=== PATIENT | female | born 1985 | race Caucasian/White ===

== ENCOUNTER → 2016-12-15 07:19 | Day surgery (SDC) | payer OTHER ==
--- NOTE | 2016-12-04 10:26 | HP ---
PREOPERATIVE HISTORY AND PHYSICAL EXAM: DATE OF ADMISSION/SURGERY: 12/15/16 DATE OF OFFICE VISIT/ENCOUNTER: 12/02/16 ATTENDING SURGEON: Stacy Shaw MD PROCEDURE: Excision mass right thumb. CHIEF COMPLAINT: Right thumb mass. HISTORY OF PRESENT ILLNESS: This is a 31-year-old female who complains of a lump in her right thumb that has been present for approximately a month. It bothers her when she is driving, typing, and s weeping. It feels better when she rests it. She does not have any associated numbness and denies a ny injury. She has not had any break in her skin. She would like to have the mass removed. 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 2. Depression. 3. Anxiety. 4. Sleep apnea with CPAP. PAST SURGICAL HISTORY: 1. . 2. Dental surgery. CURRENT MEDICATIONS: 1. Centrum 1 tablet daily. 2. Effexor 225 mg daily. 3. Fiber 625 mg 5 tablets daily. 4. Gabapentin 800 mg 3 times a day. 5. Hydroxyzine HCL 50 mg 1 tablet q.6 h. p.r.n. 6. Melatonin ER 3 mg 2 daily. 7. Neurontin 800 mg daily. 8. Venlafaxine HCl 75 mg q.h.s. 9. Venlafaxine HCl ER 150 mg daily. 10. Vitamin B12 1000 mcg daily. 11. control implant in left arm. ALLERGIES: No known drug allergies. FAMILY MEDICAL HISTORY: Diabetes, cancer, and rheumatoid arthritis. SOCIAL HISTORY: The patient is currently unemployed. She denies tobacco use, recreational drug use and alcohol use. REVIEW OF SYSTEMS: General: Negative for fevers, chills or night sweats. No known anesthesia prob lems. HEENT: Negative for headache, lightheadedness or syncopal episodes. Integumentary: Negativ e for abrasions, lesions or open wounds. Cardiothoracic: Negative for chest pain, palpitations, or edema. Negative for hypertension. 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 GI: Negative for nausea, vomiting, diarrhea, constipation, or GERD. : Negative for nocturia, urinary frequency, urgency, history of UTIs or kidney problems. Musculoskeletal: Po sitive for current complaints. Negative for chronic or intermittent back pain. No history of fract ures. Neurological: Negative for paresthesias, numbness, history of seizure, stroke or epilepsy. Endocrine: Negative for diabetes or thyroid issues. Hematologic: Negative for easy bruising, anemi a, excessive bleeding, or history of DVT. Infectious Disease: Negative for history of MRSA, hepati tis C or HIV. PHYSICAL EXAMINATION GENERAL: Well-developed, well-nourished 31-year-old female in no acute distress. VITAL SIGNS: Height 5 feet 4 inches, weight 160 pounds, pulse rate 100, blood pressure 114/72. HEENT: Normocephalic, atraumatic. Pupils are equal, round, and reactive to light and accommodation . NECK: Supple. No palpable lymph nodes. Throat is clear. CARDIOTHORACIC: Regular rate and rhythm. S1, S2. No murmurs, rubs or gallops. No edema. PULMONARY: Lungs are clear to auscultation bilaterally. No wheezes, rales, or rhonchi. ABDOMEN: Positive bowel sounds, soft, nontender. NEUROLOGICAL: Alert and oriented x3. Cranial nerves II through XII are intact. Sensation is intact to light touch. MUSCULOSKELETAL: On exam of her right thumb, there is a subcutaneous firm mobile mass on the ulnar aspect of the thumb at the level of the proximal phalanx. It is minimally tender to palpation. The re is a negative Tinel sign. She has full flexion and extension of the thumb with good strength. S kin is intact. Neurovascular function is intact. IMAGING STUDIES: X-rays of the right thumb show no bony abnormality. ASSESSMENT: Right thumb mass. PLAN: The patient is scheduled to undergo excision of the mass from the right thumb with Dr. Shaw on 12/15/16. She will return to the office 10 to 14 days postop for followup and suture removal. A prescription for Tylenol No. 3 was e- scribed to the patient's pharmacy for postoperative pain constance holder. ALEKSANDAR PETTY [id number]/[facility] #: [id number]
[~2016-12-15 07:19] MED LIST: Buffered Lidocaine 1% SYRIN* 3 ML/SYR SYRINGE INTRADERM ONE; Lidocaine 1% INJ* 10 MG/ML 30 ML SDV ONE; Midazolam* 1 MG/ML 2 ML VIAL (2 MG) ONE; fentaNYL* 50 MCG/ML 2 ML VIAL (100 MCG VIAL) ONE
[2016-12-15 09:00] VITALS: BP 101/74
--- NOTE | 2016-12-16 02:26 | OP ---
DATE OF OPERATION: 12/15/16 [facility] DATE OF : 87 SURGEON: Stacy Shaw MD [facility] TECHNICIAN: ALEKSANDAR Vo ANESTHESIA: Local MAC. PRE-OP DIAGNOSIS: Right thumb mass. POST-OP DIAGNOSIS: Right thumb mass. OPERATIVE PROCEDURE: Removal of right thumb mass. ESTIMATED BLOOD LOSS: Zero. TOURNIQUET TIME: About 10 minutes. INDICATIONS FOR PROCEDURE: Catrachita is a 31-year-old female with a painful mass on the ulnar aspect of her right thumb. She presents for removal. DESCRIPTION OF PROCEDURE: The patient was brought to the operating room and was given a sedation anesthetic and a digital block with 10 cc of 1% plain lidocaine. The skin of her right hand and forearm was prepped and draped in the usual sterile fashion. The hand and forearm were exsanguinated and tourniquet elevated to 250 mmHg. A longitudinal incision was made centered over the mass and we dissected bluntly through the subcutaneous tissue. 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 It was easily resected. The wound was irrigated and the skin edges were reapproximated with 4-0 nylon sutures. The wound was dressed with Xeroform, 4x4, Webril and Coban. The patient tolerated the procedure well and was brought to the recovery room in good condition. [id number]/[facility] #: [id number] MTDD
== END | disposition home or self-care (01) ==
LOC: OREAST 07:19
PROVIDERS: ATTEND Orthopaedic Surgery
DX: D48.1 Neoplasm of uncertain behavior of connective and other soft tissue (principal); G47.33 Obstructive sleep apnea (adult) (pediatric); F41.8 Other specified anxiety disorders
CPT/HCPCS: 88305; J2001; J2250; J3010

== ENCOUNTER 2017-11-28 11:54 | Emergency (ER) | payer OTHER ==
[2017-11-28 12:15] VITALS: BP 119/75
--- NOTE | 2017-11-28 12:36 | UC ---
Throat Pain/Nasal Sumanth HPI - HPI Summary HPI Summary: This 32-year-old lady comes in today with complaints of sore throat and fever on and off for 4 days - History of Current Complaint Chief Complaint: UCRespiratory Stated Complaint: SORE THROAT Time Seen by Provider: 11/28/17 12:35 Hx Obtained From: Patient Hx Last Menstrual Period: implant ?: No Onset/Duration: Sudden Onset, Lasting Days - 4 Severity: Moderate Pain Intensity: 3 Pain Scale Used: 0-10 Numeric Cough: None Associated Signs & Symptoms: Positive: Fever - Allergies/Home Medications Allergies/Adverse Reactions: Allergies Allergy/AdvReac Type Severity Reaction Status Date / Time No Known Allergies Allergy Verified 11/28/17 12:15 Home Medications: Home Medications LORazepam TAB(*) [Ativan 1 MG TAB (*)] 1 mg PO BID 11/28/17 [History Confirmed 11/28/17] cloNIDine TAB* [Catapres 0.1 MG TAB*] 0.1 mg PO DAILY 11/28/17 [History Confirmed 11/28/17] lamoTRIgine TAB(*) [Lamictal TAB(*)] 25 mg PO BEDTIME 11/28/17 [History Confirmed 11/28/17] PMH/Surg Hx/FS Hx/Imm Hx Previously Healthy: No Psychological History: Anxiety, Bipolar Disorder - Surgical History Surgical History: Yes Surgery Procedure, Year, and Place: c=section - Family History Known Family History: Positive: None - Social History Occupation: Unemployed Lives: With Family Alcohol Use: None Substance Use Type: None Substance Use Comment - Amount & Last Used: 2 L of diet coke per day Smoking Status (MU): Never Smoked Tobacco - Immunization History Most Recent Influenza Vaccination: 2013 Most Recent Tetanus Shot: 2012 Most Recent Pneumonia Vaccination: na Review of Systems Constitutional: Fever, Chills, Fatigue Skin: Negative Eyes: Negative ENT: Sore Throat Respiratory: Negative Cardiovascular: Negative Gastrointestinal: Negative Genitourinary: Negative Motor: Negative Neurovascular: Negative Musculoskeletal: Negative Neurological: Headache Psychological: Negative Is Patient Immunocompromised?: No All Other Systems Reviewed And Are Negative: Yes Physical Exam Triage Information Reviewed: Yes Appearance: Well-Nourished, Ill-Appearing - Mild, Pain Distress - Mild Vital Signs: Initial Vital Signs Temp 97.6 F 11/28/17 12:11 Pulse 109 11/28/17 12:11 Resp 16 11/28/17 12:11 BP 119/75 11/28/17 12:11 Pulse Ox 100 11/28/17 12:11 Vital Signs Reviewed: Yes Eye Exam: Normal Eyes: Positive: Conjunctiva Clear ENT Exam: Normal ENT: Positive: Normal ENT inspection, Hearing grossly normal, Pharyngeal erythema, Tonsillar swelling, Uvula midline. Negative: Nasal congestion, Tonsillar exudate, Trismus, Hoarse voice, Dental tenderness, Sinus tenderness Dental Exam: Normal Neck exam: Normal Neck: Positive: Supple, Nontender, Enlarged Nodes @ - Anterior cervical Respiratory Exam: Normal Respiratory: Positive: Chest non-tender, Lungs clear, Normal breath sounds, No respiratory distress, No accessory muscle use Cardiovascular Exam: Normal Cardiovascular: Positive: No Murmur, Pulses Normal, Brisk Capillary Refill, Tachycardia Musculoskeletal Exam: Normal Musculoskeletal: Positive: Strength Intact, ROM Intact, No Edema Neurological Exam: Normal Neurological: Positive: Alert, Muscle Tone Normal Psychological Exam: Normal Skin Exam: Normal Diagnostics - Laboratory Diagnostic Studies Completed/Ordered: Rapid strep positive Throat Pain/Nasal Course/Dx - Course Assessment/Plan: Rest increase fluids Tylenol ibuprofen amoxicillin 875 mg by mouth twice a day for 10 days. Encourage patient to take probiotics while on antibiotics and for week following. Prescription for Diflucan 1 for signs and symptoms of vaginal yeast infection. follow up with primary care doctor when necessary. - Differential Dx/Diagnosis Provider Diagnoses: Strep pharyngitis Discharge - Discharge Plan Condition: Stable Disposition: HOME Prescriptions: Amoxicillin PO (*) [Amoxicillin 875 MG (*)] 875 mg PO BID #20 tab Fluconazole 150 MG (NF) [Diflucan 150 mg (NF)] 150 mg PO ONCE #1 tab Patient Education Materials: Acetaminophen (By mouth), Ibuprofen (By mouth), Probiotic (By mouth), Strep Throat (ED) Referrals: Joan Coleman MD [Primary Care Provider] - If Needed
== END 2017-11-28 12:50 | disposition home or self-care (01) ==
LOC: UCEAST 11:54
DX: J02.0 Streptococcal pharyngitis (principal)
CPT/HCPCS: 99212; G0463